=== PATIENT | male | born 1945 | race Caucasian/White ===

== ENCOUNTER 2017-04-03 15:56 | Emergency (ER) | payer MEDICARE, OTHER ==
[2013-09-01 08:52] VITALS: BMI 25.4
[~2017-04-03 15:56] MED LIST: ASCORBIC ACID500 MG PO; ASPIRIN EC81 M1 PO; BYSTOLIC2.5 MG PO; COUMADIN7.5 MG PO; DEHA; HYDROCHLOROTHIA25 MG PO; HYDROCODONE-APA1 TAB PO; JANUMET 50-5001 TAB PO; LANOXIN125 MCG PO; LOVAZA1 G PO; MULTIPLE VITAMI1 TA1; PRILOSEC20 MG PO; TRILIPIX135 MG; ZOCOR80 MG PO
[2017-04-03 17:09] LABS: BASOPHILS 0.3 % (0-2); EOSINOPHILS 2.8 % (0-7); HEMATOCRIT 38.2 % (42.0-54.0); HEMOGLOBIN 13.2 g/dL (13.5-17.5); IMMATURE GRANULOCYTES 0.3 % (0-5); LYMPHOCYTES 35.5 % (15-50); MCH 31.1 pg (26.0-34.0); MCHC 34.6 g/dL (31.0-37.0); MCV 90.1 fL (80.0-100.0); MONOCYTES 8.2 % (2-11); NEUTROPHILS 52.9 % (40-80); PLATELET COUNT 260 10x3/uL (130-400); RBC 4.24 10x6/uL (4.20-6.10); RDW 12.5 % (11.5-14.5); WBC 6.8 10x3/uL (4.8-10.8)
[2017-04-03 17:58] LABS: APTT 29.3 SECONDS (22.8-39.4); INR 1.05 (0.85-1.17); PROTIME 13.3 SECONDS (11.6-15.0)
[2017-04-03 18:38] LABS: ALBUMIN 3.4 g/dL (3.4-5.0); ANION GAP 12.3 mmol/L (8-16); BILIRUBIN - TOTAL 0.34 mg/dL (0.2-1.3); CALCIUM 9.3 mg/dL (8.5-10.1); CARBON DIOXIDE 26.7 mmol/L (21.0-32.0); CREATININE - SERUM 1.6 mg/dL (0.6-1.3)
== END 2017-04-03 19:00 | disposition home or self-care (01) ==
LOC: D.ER 15:56
PROVIDERS: Emergency Medicine
DX: K92.2 Gastrointestinal hemorrhage, unspecified (principal)

== ENCOUNTER 2019-01-24 18:20 | Emergency (ER) | payer MEDICARE, OTHER ==
[~2019-01-24] VITALS: Ht 188 cm; Wt 97.7 kg
[2019-01-24 18:29] VITALS: Ht 188 cm; Wt 97.7 kg
[2019-01-24] MEDS ORDERED: ROBAXIN500 MG PO (20:07)
[2019-01-24] MEDS ORDERED: NAPROSYN500 MG PO (20:07)
[2019-01-24 20:30] VITALS: BP 138/72
== END 2019-01-24 20:31 | disposition home or self-care (01) ==
LOC: D.ER 18:20
DX: S16.1XXA Strain of muscle, fascia and tendon at neck level, initial encounter (principal); W01.0XXA Fall on same level from slipping, tripping and stumbling without subsequent striking against object, initial encounter; M54.12 Radiculopathy, cervical region; S50.02XA Contusion of left elbow, initial encounter

== ENCOUNTER 2019-02-14 14:40 | Emergency (ER) | payer MEDICARE, OTHER ==
[~2019-02-14] VITALS: Ht 188 cm; Wt 91.4 kg
[~2019-02-14 14:40] MED LIST changes: +NAPROSYN500 MG PO; +ROBAXIN500 MG PO
[2019-02-14 14:53] VITALS: Ht 188 cm; Wt 91.4 kg
[2019-02-14] MEDS ORDERED: ELIQUIS5 MG PO (15:05)
[2019-02-14] MEDS ORDERED: ENTRESTO 49 MG1 EACH PO (15:05)
[2019-02-14] MEDS ORDERED: TIKOSYN500 MCG PO (15:05)
[2019-02-14] MEDS ORDERED: K-DUR20 MEQ PO (15:05)
[2019-02-14] MEDS ORDERED: LASIX40 MG PO (15:06)
[2019-02-14] MEDS ORDERED: TRICOR145 MG PO (15:06)
[2019-02-14] MEDS ORDERED: VIAGRA100 MG PO (15:06)
[2019-02-14] MEDS ORDERED: FLOMAX0.4 MG PO (15:06)
[2019-02-14] MEDS ORDERED: VALIUM5 MG PO (15:07)
[2019-02-14] MEDS ORDERED: RELAFEN500 MG PO (15:08)
[2019-02-14] MEDS ORDERED: TALWIN NX1 TAB PO (15:08)
[2019-02-14] MEDS ORDERED: LYRICA300 MG PO (15:08)
[2019-02-14 15:34] LABS: BASOPHILS 0 % (0-2); EOSINOPHILS 0.9 % (0-7); HEMATOCRIT 39.7 % (42.0-54.0); HEMOGLOBIN 13.7 g/dL (13.5-17.5); IMMATURE GRANULOCYTES 1.3 % (0-5); LYMPHOCYTES 19.8 % (15-50); MCH 31.9 pg (26.0-34.0); MCHC 34.5 g/dL (31.0-37.0); MCV 92.5 fL (80.0-100.0); MEAN PLATELET VOLUME 9.3 fL (7.4-10.4); MONOCYTES 7.1 % (2-11); NEUTROPHILS 70.9 % (40-80); RBC 4.29 10x6/uL (4.20-6.10); RDW 12.5 % (11.5-14.5); WBC 6.7 10x3/uL (4.8-10.8)
[2019-02-14 15:37] LABS: PLATELET COUNT 156 10x3/uL (130-400)
[2019-02-14 15:42] LABS: INR 1.12 (0.85-1.17); PROTIME 13.9 SECONDS (11.6-15.0)
[2019-02-14 15:57] LABS: CKMB 1.2 U/L (0.0-3.6); CREATINE KINASE 32 UL (21-232); MAGNESIUM - SERUM 1.9 mg/dL (1.8-2.4)
[2019-02-14 16:06] LABS: TROPONIN-I < 0.017 ng/mL (0.000-0.060)
[2019-02-14 16:14] VITALS: BP 138/65
== END 2019-02-14 16:14 | disposition left against medical advice (07) ==
LOC: D.ER 14:40
PROVIDERS: Emergency Medicine
DX: R53.1 Weakness (principal); E11.9 Type 2 diabetes mellitus without complications; Z79.84 Long term (current) use of oral hypoglycemic drugs; I50.9 Heart failure, unspecified; Z09 Encounter for follow-up examination after completed treatment for conditions other than malignant neoplasm; Z95.0 Presence of cardiac pacemaker

== ENCOUNTER → 2019-06-01 08:27 | Outpatient (CLI) | payer MEDICARE, OTHER ==
[2019-02-14 14:53] VITALS: BMI 25.8
[~2019-06-01 08:27] MED LIST changes: +ELIQUIS5 MG PO; +ENTRESTO 49 MG1 EACH PO; +FLOMAX0.4 MG PO; +K-DUR20 MEQ PO; +LASIX40 MG PO; +LYRICA300 MG PO; +RELAFEN500 MG PO; +TALWIN NX1 TAB PO; +TIKOSYN500 MCG PO; +TRICOR145 MG PO; +VALIUM5 MG PO; +VIAGRA100 MG PO
== END | disposition home or self-care (01) ==
LOC: D.RAD 08:27 → D.CT 10:00
PROVIDERS: ATTEND Family Medicine
DX: M54.2 Cervicalgia (principal)

== ENCOUNTER → 2019-11-13 14:29 | Outpatient (CLI) | payer MEDICARE, OTHER ==
[2019-02-14 14:53] VITALS: BMI 25.8
== END | disposition home or self-care (01) ==
LOC: D.RAD 14:29
DX: M50.20 Other cervical disc displacement, unspecified cervical region (principal)